=== PATIENT | female | born 1995 | race American Indian/Alaskan Native ===

== ENCOUNTER 2020-09-24 16:17 | Outpatient (CLI) | payer MEDICAID ==
[2020-09-24 16:37] VITALS: BP 129/75
[2020-09-24] MEDS ORDERED: LACTATED RINGERS 500 ML IV ONE (17:00)
[2020-09-24] MEDS ORDERED: LACTATED RINGERS 1,000 ML IV ONE (17:00)
== END 2020-09-24 16:55 | disposition left against medical advice (07) ==
LOC: TRG 16:17 → APU 16:18 → TRG 16:55
PROVIDERS: ATTEND Obstetrics & Gynecology
DX: O47.1 False labor at or after 37 completed weeks of gestation (principal); Z3A.37 37 weeks gestation of pregnancy
CPT/HCPCS: 59025